=== PATIENT | female | born 1945 | race Caucasian/White ===

== ENCOUNTER 2017-10-17 11:28 | Outpatient (CLI) | payer OTHER | END 2017-10-17 11:33 | disposition home or self-care (01) | LOC: LAB 11:28 | DX: E03.8 Other specified hypothyroidism (principal); E55.9 Vitamin D deficiency, unspecified; M85.9 Disorder of bone density and structure, unspecified; E21.2 Other hyperparathyroidism; E56.1 Deficiency of vitamin K; E88.89 Other specified metabolic disorders; A49.02 Methicillin resistant Staphylococcus aureus infection, unspecified site ==